=== PATIENT | male | born 1950 | race Caucasian/White ===

== ENCOUNTER 2024-12-06 12:13 | Outpatient (REF) | payer OTHER, SELFPAY ==
--- NOTE | ~2024-12-06 | XR_ITS ---
EXAMINATION: XR CHEST CLINICAL INFORMATION: bronchitis COMPARISON: None available. TECHNIQUE: 2 views of the chest were obtained. FINDINGS: Borderline cardiac enlargement. Mediastinal hilar contours otherwise appear normal. The lungs are clear bilaterally. There is no pneumothorax or pleural effusion. There is no focal osseous or soft tissue abnormality. There are spinal degenerative changes and degenerative changes in the left greater than right shoulder joints. XR/XR chest 2V IMPRESSION: No active pulmonary disease. Electronically signed by: Clarence Amos MD 12/06/2024 02:42 PM EDT
--- OUTSIDE RECORDS SUMMARY | 2024-12-06 13:24 | XMS_ITS | Clinical Summary ---
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 Role Phone Unavailable Primary Care Provider Unavailabl e Social History Tobacco Use Types Packs/Day Years Used Date Smoking Tobacco: Never Assessed Sex and Gender Information Value Date Recorded Sex Assigned at Not on file Gender Identity Not on file Sexual Orientation Not on file Plan of Treatment Health Maintenance Due Date Last Done Comments Hepatitis C Screening 1950 COVID-19 Vaccine (#1) 1951 Depression Screening 1963 Preventative Health Evaluation 1969 DTap / Tdap / Td (1 - Tdap) 1970 Colon Cancer Screening (Colonoscopy) 1996 Shingrix-Zoster Vaccine (1 of 2) 2001 Fall Risk Assessment 2016 Pneumococcal Vaccine (1 of 1 - PCV) 2016 Influenza Vaccine (Season Ended) 2025 RSV Adult > 60+ Yrs or Pregn ant (1 - 1-dose 75+ series) 2026 Hepatitis B Vaccines Aged Out No long er eligible based on patient's age to complete this topic RSV Ped < 20 months Aged Out No longe r eligible based on patient's age to complete this topic
== END 2024-12-06 12:14 | disposition home or self-care (01) ==
LOC: HO.XRAY 12:13
PROVIDERS: Visit Provider Otolaryngology
DX: J40 Bronchitis, not specified as acute or chronic (principal)
CPT/HCPCS: 71046

== ENCOUNTER → 2024-12-06 12:38 | Outpatient (BNV) | payer OTHER, MEDICARE, SELFPAY | PROVIDERS: Visit Provider Radiology Diagnostic Radiology | DX: J40 Bronchitis, not specified as acute or chronic (principal) | CPT/HCPCS: 71046 ==

== ENCOUNTER 2024-12-10 07:05 | Outpatient (REF) | payer OTHER, SELFPAY ==
--- NOTE | ~2024-12-10 | CT_ITS ---
EXAMINATION: CT SINUS WITHOUT CONTRAST CLINICAL INFORMATION: Nasal polyps and deviated nasal septum. COMPARISON: None available. TECHNIQUE: Spiral noncontrast CT of the paranasal sinuses and maxillofacial region was performed in axial plane. Examination was carried out from the inferior maxilla to the mid temporal parietal bones, just above the petrous ridges. Sagittal, coronal, and thin section axial reformatted images were reconstructed from the axial data set. This CT examination was performed using dose optimization techniques as appropriate, variously including the following: *Automated exposure control *Adjustment of mA and/or kV according to patient size (this includes techniques or standardized protocols for targeted exams where dose is matched to indication/reason for exam; i.e. extremities or head) *Use of iterative reconstruction technique FINDINGS: POSTOPERATIVE FINDINGS: None apparent. MAXILLARY DENTAL FINDINGS: No active maxillary dental disease identified. There are maxillary dental implants in place. No complication evident. There are mandibular implants in place as well on the right side. There is no mandibular periapical lucency. NASAL CAVITY: There is diffuse mild polypoid nasal mucosal membrane thickening, although no discrete polyp or mass is identified via noncontrast CT. No significant narrowing of the inferior or middle meati. Nasal septum: There is mild S-shaped appearance of the posterior septum in the coronal plane. Anteriorly, there is mild right nasal septal deviation without spur. TURBINATES: The middle turbinates have normal morphology, although both are anteriorly partially paradoxical. The inferior turbinates have normal morphology. The superior turbinates have normal morphology. MAXILLARY SINUSES: Mild circumferential mucosal thickening noted bilaterally, predominantly in the posterior maxillary antra. The right maxillary ostium is patent although narrowed by mucosal thickening. The left maxillary ostium is patent although narrowed by a partial Ruiz cell and mucosal thickening. ETHMOID SINUSES: Scattered moderate mucosal thickening seen throughout the anterior ethmoid sinuses. Mild scattered mucosal thickening present in the posterior ethmoid sinuses. No air-fluid levels evident. FRONTAL SINUSES: Moderate bilateral mucosal thickening present most prominent dependently, with obstruction of both frontal recesses. No air-fluid levels. SPHENOID SINUSES: Mild predominately ventral mucosal thickening bilaterally. The left sphenoethmoidal recess appears obstructed by mucosal thickening. The right sphenoethmoidal recesses narrowed but a thin air channel is patent. PREOPERATIVE ANATOMY: There are type II cribriform plates. The left-sided lower. The left fovea ethmoidalis and lateral lamella are lower. The anterior ethmoid canals are minimally surrounded by air. No pneumatization of the cribriform plate. ADDITIONAL FINDINGS: The globes and orbital contents appear normal. No extracranial soft tissue abnormality identified. The mastoids and tympanic cavities appear aerated normally on both sides. The TM joints appear normal. Limited imaging of the intracranial contents demonstrates no hemorrhage, mass effect, ventriculomegaly, or edema. CT/CT sinus wo IV con IMPRESSION: 1. Mild to moderate scattered paranasal sinus disease most significant involving the bilateral frontal sinuses with obstruction of both frontal recesses. 2. Mild circumferential mucosal thickening throughout both maxillary sinuses, with narrowing of the bilateral maxillary ostia, although thin air channels remain patent. 3. Moderate scattered mucosal thickening in the anterior greater than posterior ethmoid sinuses. 4. The right sphenoethmoidal recess is narrowed and the left sphenoethmoidal recess is obstructed. 5. There are no gross discrete masses or polyps identified in the nasal cavity although there is diffuse mucoperiosteal thickening throughout the nasal cavity. 6. S-shaped configuration to the nasal septum most notable in the coronal plane. No significant septal spurring. 7. Additional ancillary findings as discussed above. Electronically signed by: Clarence Amos MD 12/10/2024 08:49 AM EDT
--- OUTSIDE RECORDS SUMMARY | 2024-12-10 07:09 | XMS_ITS | Continuity of Care Document ---
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 [address], [place], [id number] , [place]. tel: [phone] Family History Family Member Type Diagnosis Age At Onset No Information Payers Payer name Insurance type Covered libertarian ID Authorrameza magaliketurah(s) [facility] [id number] Social History Type Description Quantity Date Captured Comments Sex Male Smoking Status No Information Chief Complaint And Reason For Visit No Information Reason For Referral Reason For Referral No Information History Of Present Illness Encounter Date Complaint History Of Prese nt Illness No Information Functional Status Date Functional Assessmen t No Information Instructions Date Instruction Additional Infor mation No Information Assessments Type Assessment Date No Information Patient Care Teams Name Effective Dates (start - stop) Status Members No Information
== END 2024-12-10 07:06 | disposition home or self-care (01) ==
LOC: HO.CT 07:05
PROVIDERS: Visit Provider Otolaryngology
DX: J33.0 Polyp of nasal cavity (principal); J34.2 Deviated nasal septum
CPT/HCPCS: 70486

== ENCOUNTER → 2024-12-10 07:08 | Outpatient (BNV) | payer OTHER, SELFPAY | PROVIDERS: Visit Provider Radiology Diagnostic Radiology | DX: J01.20 Acute ethmoidal sinusitis, unspecified (principal) | CPT/HCPCS: 70486 ==